=== PATIENT | female | born 1990 | race Caucasian/White ===

== ENCOUNTER 2018-05-27 09:04 | Emergency (ER) | payer OTHER ==
[~2018-05-27] VITALS: Ht 144.8 cm; Wt 53.1 kg
== END 2018-05-27 14:53 | disposition home or self-care (01) ==
LOC: ER 09:04
DX: M25.562 Pain in left knee (principal)

== ENCOUNTER 2020-06-24 08:27 | Outpatient (CLI) | payer OTHER | END 2020-06-24 08:30 | disposition home or self-care (01) | LOC: SONOGRAMA 08:27 | PROVIDERS: ATTEND General Practice | DX: N63.20 Unspecified lump in the left breast, unspecified quadrant (principal); N64.59 Other signs and symptoms in breast ==